=== PATIENT | male | born 1955 | race Caucasian/White ===

== ENCOUNTER 2020-03-29 07:44 | Day surgery (SDC) | payer MEDICARE ==
[~2020-03-29] VITALS: Ht 188 cm; Wt 110.2 kg
[2020-03-29 08:45] VITALS: BP 135/70; PULSE 48; TEMP 97.2
[2020-03-29] MEDS ORDERED: FISH OIL 1000MG1 CAP PO (08:59)
[2020-03-29] MEDS ORDERED: COZAAR 50MG50 MG/TAB PO (09:00)
[2020-03-29] MEDS ORDERED: ASPIRIN E.C. 8181 MG PO (09:00)
[2020-03-29] MEDS ORDERED: FLOMAX 0.40.4 MG/CAP PO (09:01)
[2020-03-29] MEDS ORDERED: LOPRESSOR 550 MG/TAB PO (09:02)
[2020-03-29] MEDS ORDERED: CENTRUM SILVER1 CTB PO (09:03)
[2020-03-29] MEDS ORDERED: GLUCOPHAGE XR500 M1 PO (09:04)
[2020-03-29] MEDS ORDERED: GLUCOTROL 5M5 MG/TAB PO (09:06)
[2020-03-29] MEDS ORDERED: CRESTOR40 MG PO (09:06)
--- NOTE | 2020-03-29 09:06 | NUR ---
TO RM AT 0810- CALL LIGHT IN REACH AT BEDSIDE.
[2020-03-29 12:09] VITALS: BP 121/69; PULSE 54; TEMP 97.1
--- NOTE | 2020-03-29 12:09 | NUR ---
TO RM 1 PER CART FROM PACU. DROWSY, OPENS EYES TO ANSWER QUESTIONS AND FALLS BACK TO SLEEP. AT BEDSIDE. DENIES PAIN OR DISCOMFORT. DENIES NAUSEA OR VOMITING.
[2020-03-29 12:25] VITALS: BP 121/67; PULSE 46
--- NOTE | 2020-03-29 12:25 | NUR ---
CONTINUES TO SLEEP QUIETLY
[2020-03-29 12:40] VITALS: BP 122/67; PULSE 51
--- NOTE | 2020-03-29 12:40 | NUR ---
MORE AWAKE AND TAKING SIPS OF WATER.
[2020-03-29 12:55] VITALS: BP 110/58; PULSE 63
--- NOTE | 2020-03-29 13:15 | NUR ---
VOIDED 100CC LIGHT TEA COLORED URINE. STRAINED URINE WITHOUT ANY STONES NOTED.
--- NOTE | 2020-03-29 13:50 | NUR ---
RECEIVED DISCHARGE INSTRUCTIONS AND VERBALIZED UNDERSTANDING. DISCONTINUED IV AND INT- CATHETER INTACT. PATIENT SENT HOME WITH SUPPLIES TO STRAIN URINE AT HOME.
--- NOTE | 2020-03-29 14:10 | NUR ---
DISCHARGED PER WC BY NURSING STAFF TO PRIVATE CAR IN CARE OF ELI.
== END 2020-03-29 14:15 | disposition home or self-care (01) ==
LOC: SDCO 07:44
DX: N20.1 Calculus of ureter (principal); Z79.82 Long term (current) use of aspirin; Z79.84 Long term (current) use of oral hypoglycemic drugs; E11.9 Type 2 diabetes mellitus without complications; K21.9 Gastro-esophageal reflux disease without esophagitis
CPT/HCPCS: J0690; J1885; J2405; J2704; J3010; J7120